=== PATIENT | male | born 1975 | race Caucasian/White ===

== ENCOUNTER 2017-11-09 16:52 | Outpatient (CLI) | payer MEDICAID | END 2017-11-09 16:53 | disposition critical access hospital (66) | LOC: EMS 16:52 | PROVIDERS: ATTEND Surgery | DX: R45.851 Suicidal ideations (principal); Z78.1 Physical restraint status | CPT/HCPCS: A0425; A0429 ==

== ENCOUNTER 2017-11-20 21:36 | Outpatient (CLI) | payer MEDICAID | END 2017-11-20 21:37 | disposition short-term general hospital (02) | LOC: EMS 21:36 | PROVIDERS: ATTEND Surgery | DX: R45.851 Suicidal ideations (principal) | CPT/HCPCS: A0425; A0429 ==

== ENCOUNTER 2020-05-27 18:51 | Emergency (ER) | payer MEDICAID ==
[2020-05-27 19:05] VITALS: BP 149/99
--- NOTE | 2020-05-27 19:30 | ED Physician Documentation ---
PD HPI MHE - Stated complaint Stated Complaint: SI - Chief complaint Chief Complaint: MHE - History obtained from History obtained from: Patient - History of Present Illness Primary symptom: Suicidal ideation - Additional information Additional information: 44-year-old gentleman with history of suicide attempt and depression as well as alcoholism. Recent relapse to alcohol and having some social issues with his girlfriend. Not currently suicidal he says, just wants to leave and be able to go to work tomorrow. He called the crisis line today for help and police ended up bringing him in. He is not detained. Review of Systems Ten Systems: 10 systems reviewed and negative Constitutional: reports: Reviewed and negative Nose: reports: Reviewed and negative Throat: reports: Reviewed and negative PD PAST MEDICAL HISTORY - Past Medical History Cardiovascular: Pulmonary embolism Psych: Depression - Past Surgical History Ortho: Other - Present Medications Home Medications: Ambulatory Orders Medication Instructions Recorded Confirmed No Known Home Medications 11/09/17 11/09/17 - Allergies Allergies/Adverse Reactions: Allergies Allergy/AdvReac Type Severity Reaction Status Date / Time acetaminophen [From Vicodin] AdvReac Hallucinati Verified 05/27/20 19:01 ons hydrocodone [From Vicodin] AdvReac Hallucinati Verified 05/27/20 19:01 ons - Social History Does the pt smoke?: Yes Smoking Status: Current every day smoker Does the pt have substance abuse?: No - Immunizations Immunizations are current?: No - POLST Patient has POLST: No PD ED PE NORMAL - Vitals Vital signs reviewed: Yes - General General: Alert and oriented X 3 (Smells of alcohol with slightly slurred speech but alert and cogent and a good historian.) - HEENT HEENT: PERRL, EOMI - Neck Neck: Supple, no meningeal sign, No bony TTP - Cardiac Cardiac: RRR, No murmur - Respiratory Respiratory: No respiratory distress, Clear bilaterally - Abdomen Abdomen: Normal bowel sounds, Soft, Non tender - Back Back: No CVA TTP, No spinal TTP - Derm Derm: Normal color, Warm and dry - Extremities Extremities: No edema, No calf tenderness / cord - Neuro Neuro: Alert and oriented X 3, Normal speech Results - Vitals Vitals: Vital Signs - 24 hr 05/27/20 19:01 Temperature 37 C Heart Rate 90 Respiratory 18 Rate Blood Pressure 149/99 H O2 Saturation 97 Oxygen O2 Source Room air - Labs Labs: Laboratory Tests 05/27/20 05/27/20 05/27/20 19:25 19:25 19:25 WBC 6.3 RBC 5.13 Hgb 16.0 Hct 45.7 MCV 89.1 MCH 31.2 H MCHC 35.0 RDW 12.9 Plt Count 279 MPV 7.9 Neut # (Auto) 3.1 Lymph # (Auto) 2.7 Riley # (Auto) 0.5 Eos # (Auto) 0.1 Baso # (Auto) 0.1 Absolute Nucleated RBC 0.00 Nucleated RBC % 0.0 Sodium 142 Potassium 3.7 Chloride 100 L Carbon Dioxide 28 Anion Gap 14.0 H BUN 15 Creatinine 1.0 Estimated GFR (MDRD) 80 L Glucose 100 Calcium 8.3 L Total Bilirubin 0.6 AST 26 ALT 23 Alkaline Phosphatase 60 Total Protein 7.2 Albumin 4.2 Globulin 3.0 Albumin/Globulin Ratio 1.4 Lipase 45 TSH 0.98 Salicylates < 6.0 Acetaminophen < 10 L Ethyl Alcohol 328.8 PD MEDICAL DECISION MAKING - ED course ED course: Patient was seen and evaluated at the bedside, he admitted to alcoholism and likely being currently intoxicated and he seems comfortable with the plan of him sobering up in the department and then reassessing. He initially did not want hospitalization. Subsequent to my evaluation he ambulated out of the department without formal discharge in no apparent distress. Departure - Departure Disposition: ED [facility] Clinical Impression: Alcoholic intoxication Qualifiers: Complication of substance-induced condition: uncomplicated Qualified Code(s): F10.920 - Alcohol use, unspecified with intoxication, uncomplicated
[2020-05-27 19:35] LABS: BASOPHILS # (AUTO) 0.1 10^3/uL (0.0-0.1); BASOPHILS % (AUTO) 0.8 %; EOSINOPHILS # (AUTO) 0.1 10^3/uL (0.0-0.7); EOSINOPHILS % (AUTO) 0.8 %; LYMPHOCYTES # (AUTO) 2.7 10^3/uL (1.5-3.5); LYMPHOCYTES % (AUTO) 42.2 %; MEAN CORPUSCULAR HEMOGLOBIN 31.2 pg (27.0-31.0); MEAN CORPUSCULAR VOLUME 89.1 fL (80.0-94.0); MEAN PLATELET VOLUME 7.9 fL (7.4-11.4); MONOCYTES # (AUTO) 0.5 10^3/uL (0.0-1.0); MONOCYTES % (AUTO) 7.1 %; NEUTROPHILS # (AUTO) 3.1 10^3/uL (1.5-6.6); NEUTROPHILS % (AUTO) 48.9 %; PLT - PLATELET COUNT 279 10^3/uL (130-450); RED BLOOD COUNT 5.13 10^6/uL (4.70-6.10); RED CELL DISTRIBUTION WIDTH 12.9 % (12.0-15.0); WHITE BLOOD COUNT 6.3 x10^3/uL (4.8-10.8)
[2020-05-27 19:49] LABS: ACETAMINOPHEN < 10 ug/mL (10-30); ALBUMIN 4.2 g/dL (3.2-5.5); ALBUMIN/GLOBULIN RATIO 1.4 (1.0-2.2); ALKALINE PHOSPHATASE 60 IU/L (42-121); ALT ALANINE AMINOTRANSFERASE 23 IU/L (10-60); AST ASPARTATE AMINOTRANSFERASE 26 IU/L (10-42); BILIRUBIN,TOTAL 0.6 mg/dL (0.2-1.0); BUN - BLOOD UREA NITROGEN 15 mg/dL (6-20); CALCIUM 8.3 mg/dL (8.5-10.3); CARBON DIOXIDE - CO2 28 mmol/L (21-32); CHLORIDE 100 mmol/L (101-111); GLUCOSE 100 mg/dL (70-100); LIPASE 45 U/L (22-51); SALICYLATE < 6.0 mg/dL; SODIUM 142 mmol/L (135-145); TOTAL PROTEIN 7.2 g/dL (6.7-8.2)
== END 2020-05-27 20:03 | disposition left against medical advice (07) ==
LOC: ED 18:51
DX: F10.229 Alcohol dependence with intoxication, unspecified (principal); F17.200 Nicotine dependence, unspecified, uncomplicated; Z53.29 Procedure and treatment not carried out because of patient's decision for other reasons
CPT/HCPCS: 36415; 80053; 80307; 80320; 80329; 83690; 84443; 85025; 99283